=== PATIENT | male | born 1940 | race Caucasian/White ===

== ENCOUNTER 2019-01-26 17:28 | Emergency (ER) | payer BC, MEDICARE ==
[~2019-01-26] VITALS: Ht 182.8 cm; Wt 73.8 kg
--- NOTE | 2019-01-26 17:45 | NUR ---
This RN had a discussion with the patient . She states that Daniel is normally mild mannered but has become increasingly aggressive over the past 4 months. She reports that she sleeps in a seperate room and locks the door at night because he gets up and gets agitated. She also reports that he talks to himself all the time and makes comments like people are trying to kill him. She states that tonight he was more agitated, he was stomping and banging around the living room talking about the people who wanted to kill him.
--- NOTE | 2019-01-26 17:49 | ED General ---
General Stated Complaint: ALTERED MENTAL STATUS/FALL History of Present Illness Date Seen by Provider: Jan 26, 2019 Time Seen by Provider: 17:44 Initial Comments Patient presenting to emergency department for evaluation of hallucinations as says that he has been having hallucinations for the past 4 months which is not normal for him. He has been having some falls as well. Last the patient why he is here he doesn't know exactly how to answer and provides information that he has been hearing voices including voices from other family members that are not present they tell him to do things such as go places. He has been verbally aggressive at times as he is angry that someone is trying to kill him per the however she said she is concern for his safety as he has very bizarre behavior and she has been locking the door home. He denies any pain fever chills nausea vomiting diarrhea shortness of breath unilateral weakness numbness or tingling. His primary care provider started on a memory pill as he has dementia after Thanks[place] however this does not seem to be helping. He was on Eliquis but now he is just on aspirin. He is in no obvious distress with normal vital signs. (EDMUND VIDALES DO) Allergies and Home Medications Allergies Coded Allergies: No Known Drug Allergies (Unverified , 01/26/19) Home Medications Apixaban 5 Mg Tablet, 5 MG PO BID, (Reported) Aspirin 81 Mg Tablet.dr, 81 MG PO DAILY, (Reported) Atorvastatin Calcium 80 Mg Tablet, 80 MG PO DAILY, (Reported) Carvedilol 6.25 Mg Tablet, 6.25 MG PO BID, (Reported) Donepezil HCl 10 Mg Tablet, 10 MG PO HS, (Reported) Ginkgo Biloba 60 Mg Capsule, 60 MG PO DAILY, (Reported) Loratadine 10 Mg Tablet, 10 MG PO DAILY, (Reported) Memantine HCl 5 Mg Tablet, 5 MG PO BID, (Reported) Multivit-Min/FA/Lycopen/Lutein 1 Each Tablet, 1 EACH PO DAILY, (Reported) Nitroglycerin 0.4 Mg Tab.subl, 0.4 MG SL UD PRN for CHEST PAIN, (Reported) [place]-3 Fatty Acids/Fish Oil 1 Each Capsule, 1 EACH PO BID, (Reported) Omeprazole 20 Mg Capsule.dr, 20 MG PO DAILY, (Reported) Perindopril Erbumine 2 Mg Tablet, 2 MG PO DAILY, (Reported) Psyllium Husk 0.52 Gm Capsule, 0.52 GM PO HS, (Reported) Patient Home Medication List Home Medication List Reviewed: Yes (EDMUND VIDALES DO) Review of Systems Review of Systems Constitutional: no symptoms reported EENTM: no symptoms reported Respiratory: no symptoms reported Cardiovascular: no symptoms reported Gastrointestinal: no symptoms reported Genitourinary: no symptoms reported Musculoskeletal: no symptoms reported Skin: no symptoms reported Psychiatric/Neurological: No Symptoms Reported (EDMUND VIDALES DO) All Other Systems Reviewed Negative Unless Noted: Yes (EDMUND VIDALES DO) Past Osydxyn-Zaqrwi-Hsnaye Hx Patient Social History Recent Foreign Travel: No Contact w/Someone Who Travel: No (EDMUND VIDALES DO) Physical Exam Vital Signs Vital Signs - First Documented 01/26/19 17:33 Temp 36.7 Pulse 69 Resp 18 B/P (MAP) 158/80 (106) Pulse Ox 95 O2 Delivery Room Air (ARPIT LEON MD) Vital Signs Capillary Refill : (EDMUND VIDALES DO) Height, Weight, BMI Height: '" Weight: lbs. oz. kg; BMI Method: General Appearance: No Apparent Distress, WD/WN Eyes: Bilateral Eye Normal Inspection HEENT: PERRL/EOMI Neck: Supple Respiratory: No Respiratory Distress Cardiovascular: Regular Rate, Rhythm Gastrointestinal: Non Tender, Soft Back: Normal Inspection Extremity: No Pedal Edema Neurologic/Psychiatric: Alert, No Motor/Sensory Deficits Skin: Warm/Dry (EDMUND VIDALES DO) Progress/Results/Core Measures Suspected Sepsis SIRS Temperature: Pulse: Respiratory Rate: Blood Pressure / Mean: (EDMUND VIDALES DO) Results/Orders Lab Results Laboratory Tests Test 01/26/19 17:40 01/26/19 17:50 01/26/19 17:55 Range/Units Urine Color YELLOW Urine Clarity CLEAR Urine pH 7.0 5-9 Urine Specific [place] 1.015 L 1.016-1.022 Urine Protein NEGATIVE NEGATIVE Urine Glucose (UA) NEGATIVE NEGATIVE Urine Ketones NEGATIVE NEGATIVE Urine Nitrite NEGATIVE NEGATIVE Urine Bilirubin NEGATIVE NEGATIVE Urine Urobilinogen 1.0 < = 1.0 MG/DL Urine Leukocyte Esterase NEGATIVE NEGATIVE Urine RBC (Auto) NEGATIVE NEGATIVE Urine RBC 0-2 /HPF Urine WBC NONE /HPF Urine Squamous Epithelial Cells NONE /HPF Urine Crystals NONE /LPF Urine Bacteria TRACE /HPF Urine Casts NONE /LPF Urine Mucus SMALL H /LPF Urine Culture Indicated NO White Blood Count 6.1 4.3-11.0 10^3/uL Red Blood Count 4.20 L 4.35-5.85 10^6/uL Hemoglobin 13.7 13.3-17.7 G/DL Hematocrit 42 40-54 % Mean Corpuscular Volume 100 H 80-99 FL Mean Corpuscular Hemoglobin 33 25-34 PG Mean Corpuscular Hemoglobin Concent 33 32-36 G/DL Red Cell Distribution Width 13.2 10.0-14.5 % Platelet Count 168 130-400 10^3/uL Mean Platelet Volume 12.0 H 7.4-10.4 FL Neutrophils (%) (Auto) 50 42-75 % Lymphocytes (%) (Auto) 33 12-44 % Monocytes (%) (Auto) 15 H 0-12 % Eosinophils (%) (Auto) 1 0-10 % Basophils (%) (Auto) 1 0-10 % Neutrophils # (Auto) 3.1 1.8-7.8 X 10^3 Lymphocytes # (Auto) 2.0 1.0-4.0 X 10^3 Monocytes # (Auto) 0.9 0.0-1.0 X 10^3 Eosinophils # (Auto) 0.1 0.0-0.3 10^3/uL Basophils # (Auto) 0.1 0.0-0.1 10^3/uL Prothrombin Time 13.2 12.2-14.7 SEC INR Comment 1.0 0.8-1.4 Activated Partial Thromboplast Time 28 24-35 SEC Sodium Level 142 135-145 MMOL/L Potassium Level 4.4 3.6-5.0 MMOL/L Chloride Level 106 98-107 MMOL/L Carbon Dioxide Level 27 21-32 MMOL/L Anion Gap 9 5-14 MMOL/L Blood Urea Nitrogen 26 H 7-18 MG/DL Creatinine 1.50 H 0.60-1.30 MG/DL Estimat Glomerular Filtration Rate 45 BUN/Creatinine Ratio 17 Glucose Level 110 H 70-105 MG/DL Calcium Level 9.1 8.5-10.1 MG/DL Corrected Calcium 9.1 8.5-10.1 MG/DL Total Bilirubin 0.2 0.1-1.0 MG/DL Aspartate Amino Transf (AST/SGOT) 27 5-34 U/L Alanine Aminotransferase (ALT/SGPT) 21 0-55 U/L Alkaline Phosphatase 53 40-136 U/L Troponin I < 0.30 <0.30 NG/ML Pro-B-Type Natriuretic Peptide 354.5 H <75.0 PG/ML Total Protein 6.2 L 6.4-8.2 GM/DL Albumin 4.0 3.2-4.5 GM/DL Salicylates Level < 0.3 L 5.0-20.0 MG/DL Acetaminophen Level 11 10-30 UG/ML Serum Alcohol < 10 <10 MG/DL (ARPIT LEON MD) My Orders Orders - ARPIT LEON MD Thyroid Stimulating Hormone (01/26/19 17:50) (ARPIT LEON MD) Vital Signs/I&O 01/26/19 01/26/19 17:33 21:45 Temp 36.7 36.6 Pulse 69 52 Resp 18 14 B/P (MAP) 158/80 (106) 154/76 Pulse Ox 95 98 O2 Delivery Room Air Room Air (ARPIT LEON MD) Vital Signs/I&O Capillary Refill : (EDMUND VIDALES DO) Progress Note : Progress Note I think this may be a progression of his dementia rather than acute medical event. I will start by checking labs and head CT and then reassess the situation. Workup pending at time of shift change at 1800, transfer care to Dr. Leon. (EDMUND VIDALES DO) Departure Communication (Admissions) Patient is being admitted to [facility] for observation. He will see psychiatry in the morning. (ARPIT LEON MD) Impression Primary Impression: Dementia Additional Impressions: Hallucinations Altered mental status Disposition: XF SHT-TRM HOSP Condition: Stable Transfer Transfer Reason: Exceeds level of care Time Spoke to Accepting Phy: 19:47 Transfer Progress Notes I spoke with Dr. Gusman who agreed to admit [facility]. Transfer Time: 19:48 Transfer Facility: [facility] [address] Method of Transfer: EMS (ARPIT LEON MD) Departure-Patient Inst. Referrals: KEVIN DELGADO MD (PCP/Family) Primary Care Physician EDMUND VIDALES DO Jan 26, 2019 17:49 POSTAYLORARPIT MD Jan 26, 2019 19:48 POS
[2019-01-26 17:54] LABS: BACTERIA,URINE TRACE /HPF; BILIRUBIN,URINE NEGATIVE (NEGATIVE); CLARITY,URINE CLEAR; COLOR,URINE YELLOW; GLUCOSE, URINE (UA) NEGATIVE (NEGATIVE); KETONES,URINE NEGATIVE (NEGATIVE); LEUKOCYTE ESTERASE ,URINE NEGATIVE (NEGATIVE); NITRITE,URINE NEGATIVE (NEGATIVE); PROTEIN,URINE NEGATIVE (NEGATIVE); RBC,URINE 0-2 /HPF
[2019-01-26 18:07] LABS: BASOPHILS # (AUTO) 0.1 10^3/uL (0.0-0.1); BASOPHILS % (AUTO) 1 % (0-10); EOSINOPHILS # (AUTO) 0.1 10^3/uL (0.0-0.3); EOSINOPHILS % (AUTO) 1 % (0-10); HEMATOCRIT 42 % (40-54); HEMOGLOBIN 13.7 G/DL (13.3-17.7); LYMPHOCYTES % (AUTO) 33 % (12-44); MEAN CORPUSCULAR HEMOGLOBIN 33 PG (25-34); MEAN CORPUSCULAR HGB CONC 33 G/DL (32-36); MEAN CORPUSCULAR VOLUME 100 FL (80-99); MONOCYTES # (AUTO) 0.9 X 10^3 (0.0-1.0); MONOCYTES % (AUTO) 15 % (0-12); NEUTROPHILS # (AUTO) 3.1 X 10^3 (1.8-7.8); NEUTROPHILS % (AUTO) 50 % (42-75); PLATELET COUNT 168 10^3/uL (130-400); RED CELL DISTRIBUTION WIDTH 13.2 % (10.0-14.5); WHITE BLOOD COUNT 6.1 10^3/uL (4.3-11.0)
--- NOTE | 2019-01-26 18:18 | Diagnostic Imaging Report ---
PROCEDURE: CT head without contrast. TECHNIQUE: Multiple contiguous axial images were obtained through the brain without the use of intravenous contrast. Auto Exposure Controls were utilized during the CT exam to meet ALARA standards for radiation dose reduction. INDICATION: Recent fall with altered mental status, history of dementia. COMPARISON STUDIES: None. FINDINGS: Noncontrast CT scanning of the head demonstrates calcification adjacent to the posterior aspect of the lateral ventricle. This is probably chronic, although a tumor with calcification cannot be completely excluded. MRI of the brain with and without contrast would be helpful for further evaluation. There is also some calcification along the cortex in the region of the sylvian fissure. This is also most likely chronic. Diffuse atrophy and white matter changes are present. No acute or focal areas of encephalomalacia are present. Calcifications are seen within the carotid siphons and vertebral arteries. There is no mass effect, midline shift, hemorrhage, or extra-axial fluid collections. IMPRESSION: 1. There are no acute intracranial findings. 2. There are some calcifications in the brain, which are probably chronic. Recommend MRI of the head with and without contrast for further evaluation of these. 3. Atrophy, microvascular disease, and arterial sclerosis are present. Dictated by: Dictated on workstation # [id number]
[2019-01-26 18:23] LABS: PROTHROMBIN TIME PATIENT 13.2 SEC (12.2-14.7)
[2019-01-26] MEDS ORDERED: CARV6.252 PO (18:25)
[2019-01-26] MEDS ORDERED: APIX5TAB PO (18:25)
[2019-01-26] MEDS ORDERED: MULT-1061 PO (18:25)
[2019-01-26] MEDS ORDERED: NITR0.4T39 SL (18:25)
[2019-01-26] MEDS ORDERED: OMEG1CAP58 PO (18:25)
[2019-01-26] MEDS ORDERED: GINK60CA2 PO (18:25)
[2019-01-26] MEDS ORDERED: DONE10TA41 PO (18:25)
[2019-01-26] MEDS ORDERED: ATOR80TA76 PO (18:25)
[2019-01-26] MEDS ORDERED: MEMA5TAB16 PO (18:25)
[2019-01-26] MEDS ORDERED: PERI2TAB2 PO (18:25)
[2019-01-26] MEDS ORDERED: PSYL0.5244 PO (18:25)
[2019-01-26] MEDS ORDERED: LORA10TA76 PO (18:25)
[2019-01-26] MEDS ORDERED: ASPI-983 PO (18:25)
[2019-01-26] MEDS ORDERED: OMEP20CA13 PO (18:25)
[2019-01-26 18:32] LABS: CARBON DIOXIDE 27 MMOL/L (21-32); CHLORIDE 106 MMOL/L (98-107); POTASSIUM 4.4 MMOL/L (3.6-5.0); SODIUM 142 MMOL/L (135-145)
[2019-01-26 18:33] LABS: ACETAMINOPHEN 11 UG/ML (10-30); ALKALINE PHOSPHATASE 53 U/L (40-136); BILIRUBIN,TOTAL 0.2 MG/DL (0.1-1.0); BUN/CREATININE RATIO 17; CALCIUM 9.1 MG/DL (8.5-10.1); GFR ESTIMATED 45; GLUCOSE 110 MG/DL (70-105); SALICYLATE < 0.3 MG/DL (5.0-20.0); TOTAL PROTEIN 6.2 GM/DL (6.4-8.2)
[2019-01-26 18:56] LABS: ALANINE AMINOTRANSFERASE 21 U/L (0-55)
--- NOTE | 2019-01-26 19:04 | NUR ---
Spoke to Lulu at [facility] source was advised to call the geriatric psych unit at [facility]. She stated that even if they screened the patient that [place] would have to rescreen the patient for placement.
--- NOTE | 2019-01-26 19:11 | NUR ---
Spoke to Miguelangel at [facility]. He stated that he will relay the information and a screener will be in contact shortly.
--- NOTE | 2019-01-26 19:42 | NUR ---
Screener Sheela from [facility] talking with about taking pt home and screening in am vs having Dr Gusman admit pt overnite for screening tomorrow. Dr Gusman will call and talk with Dr Hunt regarding this decision. Dr Hunt spoke with earlier and is ok with taking pt home tonight.
--- NOTE | 2019-01-26 20:00 | NUR ---
ems notified of need for transfer. [place] upon their return
[2019-01-26 21:45] VITALS: BP 154/76
== END 2019-01-26 21:45 | disposition short-term general hospital (02) ==
LOC: EDUNIT# 17:28 → ER FS 17:32
DX: F03.90 Unspecified dementia, unspecified severity, without behavioral disturbance, psychotic disturbance, mood disturbance, and anxiety (principal); R44.3 Hallucinations, unspecified; R41.82 Altered mental status, unspecified; Z79.82 Long term (current) use of aspirin; Z79.01 Long term (current) use of anticoagulants
CPT/HCPCS: 36415; 70450; 80053; 80320; 80329; 81000; 83880; 84443; 84484; 85025; 85610; 85730; 93005

== ENCOUNTER 2020-09-30 14:52 | Observation (INO) | payer MEDICARE, BC ==
[~2020-09-30] VITALS: Ht 177 cm; Wt 88.1 kg
[~2020-09-30 14:52] MED LIST: APIX5TAB PO; ASPI-1238 PO; ATOR80TA76 PO; CARV6.252 PO; DONE10TA41 PO; GINK60CA2 PO; LORA10TA76 PO; MEMA5TAB43 PO; MULT-1061 PO; NITR0.4T39 SL; OMEG1CAP58 PO; OMEP20CA18 PO; PERI2TAB2 PO; PSYL0.5244 PO
--- OUTSIDE RECORDS SUMMARY | 2020-09-30 14:57 | XMS REPORT | Encounter Summary ---
Author Author [facility] Organization [facility] Address Unknown Phone Unavailable Care Team Providers Care Paramedic Supervisor Name Role Phone Anjel Suarez MD PCP Encounter Details Care Team Description Date Type Department Norman Arce MD [address] [facility] [address] [place] [address] [phone] 08/08/2020 Documentation [facility] [address] [place] [address] Social History Date Tobacco Use Types Packs/Day Years Used Never Smoker Smokeless Tobacco: Never Used Comments Alcohol Use Standard Drinks/Week No 0 (1 standard drink = 0.6 o z pure alcohol) Sex Assigned at Date Recorded Not on file documented as of this encounter Plan of Treatment Not on filedocumented as of this encounter Procedures Comments Procedure Name Priority Date/Time Associated Diag nosis LAB OUTSIDE RECORD Routine 08/08/2020 12:48 PM CDT PULMONARY FUNCTION TEST Routine 06/25/2020 LAB OUTSIDE RECORD Routine 02/27/2020 documented in this encounter Results * Lab Outside Record (08/08/2020 12:48 PM CDT) Specimen Blood Narrative Performed At This result has an attachment that is n ot available. * Lab Outside Record (02/27/2020) Specimen Blood Narrative Performed At This result has an attachment that is n ot available. documented in this encounter Visit Diagnoses Not on filedocumented in this encounter
--- OUTSIDE RECORDS SUMMARY | 2020-09-30 14:57 | XMS REPORT | Clinical Summary ---
Author Author [facility] Organization [facility] Address Unknown Phone Unavailable Care Team Providers Care Cook Specialty Name Role Phone Anjel Suarez MD PCP Allergies No Known Active Allergies Medications End Date Status Medication Sig Dispensed Refills Start Date Active stknburr-tga-PU-lycopen-l take 1 tablet 1 0 utein (CENTRUM SILVER) by oral route 4 0.4-300-250 mg-mcg-mcg every day Tab Active nitroglycerin (NITROSTAT) place 1 30 5 0.4 MG SL tablet tablet 3 (0.4MG) by sublingual route as needed for chest pain X3 doses 5 minutes apart. Active flunisolide (NASALIDE) 25 spray 2 spray 1 0 mcg (0.025 %) [place] by intranasal 3 route 2 times every day in each nostril Active omega 2-fpg-bvq-fish oil 2 capsules 60 0 1 1,000 mg (120 mg-180 mg) daily 3 cap Active loratadine (CLARITIN) 10 take 1 tablet 30 0 mg tablet (10MG) by 3 oral route every day Active aspirin 81 MG EC tablet take 1 tablet 30 0 (81MG) by 3 oral route every day Active apixaban (ELIQUIS) 5 mg Take 1 tablet 60 tablet 11 tabletIndications: (5 mg total) 8 prevent thromboembolism by mouth 2 in chronic atrial (two) times a fibrillation day. Active perindopril (ACEON) 2 MG Take 2 mg by 0 tablet mouth daily. Active omeprazole (PRILOSEC) 20 Take 20 mg by 0 MG capsule mouth daily. Active venlafaxine (EFFEXOR-XR) Take 150 mg 0 150 mg ER 24 hr capsule by mouth daily. Active OLANZapine (ZYPREXA) 7.5 Take 7.5 mg 0 MG tablet by mouth nightly. Active atorvastatin (LIPITOR) 80 Take 0.5 0 06/0 202 MG tablet tablets (40 0 mg total) by mouth nightly. Active carvediloL (COREG) 6.25 TAKE 1 TABLET 180 tablet 3 MG tablet BY MOUTH 0 TWICE DAILY WITH MEALS DOSE DECREASE Active Problems Problem Noted Date Apical variant hypertrophic cardiomyopathy 0 Memory loss 07/23/2018 Chest pain 10/21/2017 History of non-ST elevation myocardial infarction (NS MUSTAPHA) 10/21/[address] elevation myocardial infarction (STEMI) 10/27/2012 Type 2 diabetes mellitus CKD (chronic kidney disease) Essential hypertension Coronary artery disease involving nativ e coronary artery of [place] heart Atrial fibrillation Overview: Formatting of this note might be differ ent from the original. 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 Mixed hyperlipidemia S/P coronary artery stent placement Amyloidosis Encounters Care Team Description Date Type Specialty Norman Arce MD 08/08/2020 Documentation Cardiology Norman Arce MD 07/21/2020 Documentation Cardiology Norman Arce MD 07/04/2020 Documentation Cardiology from Last 3 Months Family History Medical History Relation Name Comments Cancer Brother Cancer Brother Coronary artery disease Father Heart disease Father Hyperlipidemia Father Hypertension Father Lupus Mother Alzheimer's disease Sister Relation Name Status Comments Brother (Age 26) Brother Infections (Age 75) Father Cause of was [place] at age 60. (Age 60) Mother Cause of was Lupus at age 82. (Age 82) Sister Social History Date Tobacco Use Types Packs/Day Years Used Never Smoker Smokeless Tobacco: Never Used Comments Alcohol Use Standard Drinks/Week No 0 (1 standard drink = 0.6 o z pure alcohol) Sex Assigned at Date Recorded Not on file Last Filed Vital Signs Reading Time Taken Comments Vital Sign 156/95 07/28/2018 10:41 AM CDT Blood Pressure 46 07/28/2018 10:41 AM CDT Pulse 36.6 C (97.8 F) 10/23/2017 7:47 AM CDT Temperature 16 10/23/2017 7:47 AM CDT Respiratory Rate 97% 10/23/2017 7:47 AM CDT Oxygen Saturation - - Inhaled Oxygen Concentration 73.4 kg (161 lb 12.8 oz) 07/28/2018 10:41 AM CDT Weight 177.8 cm (5' 10") 07/28/2018 10:41 AM CDT Height 23.22 07/28/2018 10:41 AM CDT Body Mass Index Plan of Treatment Health Maintenance Due Date Last Done Comments Advance Directive has 1940 been filed Diabetes Mellitus 1940 Ophthalmology Exam Medicare Annual Wellness 1940 Td/Tdap# 1940 Diabetes Mellitus Foot 10/11/1951 Exam COVID-19 Vaccine (1) 1953 Zoster Vaccine# (1 of 2) 10/11/1991 Advance Directive 2006 Conversation Depression Screening 2006 PHQ-9 # Patient Needs Advance 2006 Directive Diabetes Mellitus 04/20/2018 10/21/2017, Hemoglobin A1C 10/28/2012 Fall Risk Assessment # 10/23/2018 10/23/2017 Lipid Screening 03/05/2019 03/05/2018, 10/22/2017, 10/22/2017, Additional history exists Influenza Vaccine (#1) 2020 06/16/2019, 12/07/2017, 12/07/2017, Additional history exists Pneumococcal Vaccine: 65+ Completed 11/03/2016, Years 11/02/2008 Procedures Comments Procedure Name Priority Date/Time Associated Diag nosis LAB OUTSIDE RECORD Routine 08/08/2020 12:48 PM CDT from Last 3 Months Results * Lab Outside Record (08/08/2020 12:48 PM CDT) Specimen Blood Narrative Performed At This result has an attachment that is n ot available. from Last 3 Months Insurance Type Payer Benefit Subscriber ID Effective Phone Address Plan / Dates Group Medicare MEDICARE MEDICARE [id number] 2006-P [place] PART A B [facility] [id number] FEDERAL Present [id number] (Home) [place], [place] [address] Daniel Ramos Personal/F Self [id number] [place]Home) [place], [place] [address] Daniel Ramos Personal/F Self 1940 [id number] (Home) [place] [id number] 1 Advance Directives For more information, please contact: [phone] Patient Supervisor Paper Testing Explanation Type Date Recorded Advance Directives and Living Will Power of Residential [facility] Care Directive Date Inactivated Comments Code Status Date Activated 10/23/2017 2:43 PM Full Code 10/22/2017 4:27 PM 10/22/2017 4:27 PM Full Code 10/21/2017 2:40 PM
[2020-09-30 15:13] LABS: BASOPHILS % (AUTO) 1 % (0-10); EOSINOPHILS # (AUTO) 0.1 10^3/uL (0.0-0.3); EOSINOPHILS % (AUTO) 1 % (0-10); HEMATOCRIT 38 % (40-54); HEMOGLOBIN 12.4 G/DL (13.3-17.7); LYMPHOCYTES # (AUTO) 1.2 X 10^3 (1.0-4.0); LYMPHOCYTES % (AUTO) 16 % (12-44); MEAN CORPUSCULAR HEMOGLOBIN 31 PG (25-34); MEAN CORPUSCULAR HGB CONC 33 G/DL (32-36); MEAN CORPUSCULAR VOLUME 97 FL (80-99); MEAN PLATELET VOLUME 11.2 FL (7.4-10.4); MONOCYTES # (AUTO) 1.4 X 10^3 (0.0-1.0); MONOCYTES % (AUTO) 17 % (0-12); NEUTROPHILS # (AUTO) 5.2 X 10^3 (1.8-7.8); NEUTROPHILS % (AUTO) 66 % (42-75); PLATELET COUNT 218 10^3/uL (130-400)
[2020-09-30] MEDS ORDERED: NS IV 1000 ML 1,000 ML IV SCH (15:15)
[2020-09-30] MEDS ORDERED: ONDANSETRON 4 MG/2 ML (SDV) Z0FRAN IVP ONE (15:15)
[2020-09-30] MEDS ORDERED: fentaNYL INJ 100 MCG/2 ML AMP IVP ONE (15:30)
--- NOTE | 2020-09-30 15:33 | ED General ---
General Chief Complaint: General Problems/Pain Stated Complaint: GENERAL WEAKNESS Nursing Triage Note: PT WAS WOBBLY ON HIS FEET THIS AM AND THS AFTER IT HAS WORSENED AND HE IS UNABLE TO STAND. Source of Information: Patient, Family Exam Limitations: No Limitations History of Present Illness Date Seen by Provider: Sep 30, 2020 Time Seen by Provider: 14:30 Initial Comments Patient is a 79-year-old male memory unit group home patient is nonverbal with history of dementia who presents with generalized weakness and deep nonproductive cough. Patient was able to dress himself this morning but by 10:30 AM was generally weak and needed to be helped by staff members back to his bed. Patient is normally alert and ambulatory and walks without assistance. History is limited by his cognitive and verbal impairment. Additional history of by patient's spouse. Timing/Duration: 1-3 Hours Severity: Moderate Modifying Factors: improves with Other Allergies and Home Medications Allergies Coded Allergies: No Known Drug Allergies (Unverified , 01/26/19) Home Medications Apixaban 5 Mg Tablet, 5 MG PO BID, (Reported) Aspirin 81 Mg Tablet.dr, 81 MG PO DAILY, (Reported) Atorvastatin Calcium 80 Mg Tablet, 80 MG PO DAILY, (Reported) Carvedilol 6.25 Mg Tablet, 6.25 MG PO BID, (Reported) Donepezil HCl 10 Mg Tablet, 10 MG PO HS, (Reported) Ginkgo Biloba 60 Mg Capsule, 60 MG PO DAILY, (Reported) Loratadine 10 Mg Tablet, 10 MG PO DAILY, (Reported) Memantine HCl 5 Mg Tablet, 5 MG PO BID, (Reported) Multivit-Min/FA/Lycopen/Lutein 1 Each Tablet, 1 EACH PO DAILY, (Reported) Nitroglycerin 0.4 Mg Tab.subl, 0.4 MG SL UD PRN for CHEST PAIN, (Reported) [place]-3 Fatty Acids/Fish Oil 1 Each Capsule, 1 EACH PO BID, (Reported) Omeprazole 20 Mg Capsule.dr, 20 MG PO DAILY, (Reported) Perindopril Erbumine 2 Mg Tablet, 2 MG PO DAILY, (Reported) Psyllium Husk 0.52 Gm Capsule, 0.52 GM PO HS, (Reported) Patient Home Medication List Home Medication List Reviewed: Yes Review of Systems Review of Systems Constitutional: see HPI EENTM: see HPI Respiratory: see HPI Cardiovascular: see HPI Gastrointestinal: see HPI Genitourinary: see HPI Musculoskeletal: see HPI Skin: see HPI Psychiatric/Neurological: See HPI Hematologic/Lymphatic: See HPI Immunological/Allergic: see HPI All Other Systems Reviewed Negative Unless Noted: Yes Past Vlzcdxg-Weygek-Romjip Hx Patient Social History Tobacco Use?: No Use of E-Cig and/or Vaping dev: No Substance use?: No Alcohol Use?: No Pt feels they are or have been: No Immunizations Up To Date First/Initial COVID19 Vaccinat: MAR 2020 Second COVID19 Vaccination Osiel: APRIL 2020 COVID19 Vaccine Registered Associate: MODER[facility] Seasonal Allergies Seasonal Allergies: Yes Past Medical History Surgeries: Yes (Hernia Repair, Sinus Surgery) Cardiac, Coronary Stent Respiratory: No Cardiac: Yes Coronary Artery Disease, Heart Attack, High Cholesterol, Hypertension Neurological: Yes Dementia Genitourinary: No Gastrointestinal: No Musculoskeletal: No Endocrine: No HEENT: No Cancer: No Psychosocial: No Blood Disorders: No Physical Exam Vital Signs Vital Signs - First Documented 09/30/20 15:00 Temp 36.5 Pulse 102 Resp 20 B/P (MAP) 114/64 (81) Pulse Ox 95 O2 Delivery Room Air Capillary Refill : Less Than 3 Seconds Height, Weight, BMI Height: '" Weight: lbs. oz. kg; 30.00 BMI Method: General Appearance: No Apparent Distress Eyes: Bilateral Eye Normal Inspection, Bilateral Eye PERRL, Bilateral Eye EOMI HEENT: PERRL/EOMI, Normal ENT Inspection, Pharynx Normal Neck: Full Range of Motion, Non Tender, Supple Respiratory: Chest Non Tender, Lungs Clear Cardiovascular: Regular Rate, Rhythm Gastrointestinal: Non Tender, Soft Back: Normal Inspection, No CVA Tenderness Neurologic/Psychiatric: Alert, Oriented x3 Skin: Normal Color Focused Exam Sepsis Stage: Ruled Out Progress/Results/Core Measures Suspected Sepsis SIRS Temperature: Pulse: 102 Respiratory Rate: 20 Laboratory Tests 09/30/20 15:06: White Blood Count 8.0 Blood Pressure 114 /64 Mean: 81 Laboratory Tests 09/30/20 15:06: Creatinine 2.03H, Platelet Count 218, Total Bilirubin 0.2 Results/Orders Lab Results Laboratory Tests Test 09/30/20 15:06 09/30/20 15:20 09/30/20 15:53 Range/Units White Blood Count 8.0 4.3-11.0 10^3/uL Red Blood Count 3.94 L 4.35-5.85 10^6/uL Hemoglobin 12.4 L 13.3-17.7 G/DL Hematocrit 38 L 40-54 % Mean Corpuscular Volume 97 80-99 FL Mean Corpuscular Hemoglobin 31 25-34 PG Mean Corpuscular Hemoglobin Concent 33 32-36 G/DL Red Cell Distribution Width 13.9 10.0-14.5 % Platelet Count 218 130-400 10^3/uL Mean Platelet Volume 11.2 H 7.4-10.4 FL Immature Granulocyte % (Auto) 0 % Neutrophils (%) (Auto) 66 42-75 % Lymphocytes (%) (Auto) 16 12-44 % Monocytes (%) (Auto) 17 H 0-12 % Eosinophils (%) (Auto) 1 0-10 % Basophils (%) (Auto) 1 0-10 % Neutrophils # (Auto) 5.2 1.8-7.8 X 10^3 Lymphocytes # (Auto) 1.2 1.0-4.0 X 10^3 Monocytes # (Auto) 1.4 H 0.0-1.0 X 10^3 Eosinophils # (Auto) 0.1 0.0-0.3 10^3/uL Basophils # (Auto) 0.0 0.0-0.1 10^3/uL Immature Granulocyte # (Auto) 0.0 0.0-0.1 10^3/uL Sodium Level 138 135-145 MMOL/L Potassium Level 4.5 3.6-5.0 MMOL/L Chloride Level 104 98-107 MMOL/L Carbon Dioxide Level 23 21-32 MMOL/L Anion Gap 11 5-14 MMOL/L Blood Urea Nitrogen 32 H 7-18 MG/DL Creatinine 2.03 H 0.60-1.30 MG/DL Estimat Glomerular Filtration Rate 32 BUN/Creatinine Ratio 16 Glucose Level 139 H 70-105 MG/DL Calcium Level 8.5 8.5-10.1 MG/DL Corrected Calcium 8.9 8.5-10.1 MG/DL Total Bilirubin 0.2 0.1-1.0 MG/DL Aspartate Amino Transf (AST/SGOT) 31 5-34 U/L Alanine Aminotransferase (ALT/SGPT) 19 0-55 U/L Alkaline Phosphatase 86 40-136 U/L Troponin I < 0.30 <0.30 NG/ML Total Protein 5.9 L 6.4-8.2 GM/DL Albumin 3.5 3.2-4.5 GM/DL Lipase 28 8-78 U/L Urine Color YELLOW Urine Clarity CLEAR Urine pH 7.5 5-9 Urine Specific [place] 1.020 1.016-1.022 Urine Protein NEGATIVE NEGATIVE Urine Glucose (UA) NEGATIVE NEGATIVE Urine Ketones NEGATIVE NEGATIVE Urine Nitrite NEGATIVE NEGATIVE Urine Bilirubin NEGATIVE NEGATIVE Urine Urobilinogen 0.2 < = 1.0 MG/DL Urine Leukocyte Esterase NEGATIVE NEGATIVE Urine RBC (Auto) 2+ H NEGATIVE Urine RBC >100 H /HPF Urine WBC NONE /HPF Urine Crystals NONE /LPF Urine Bacteria FEW H /HPF Urine Casts PRESENT /LPF Urine Hyaline Casts 2-5 H /LPF Urine Mucus MODERATE H /LPF Urine Culture Indicated NO My Orders Tereza - GEORGE DIALLO DO Cbc With Automated Diff (09/30/20 15:06) Comprehensive Metabolic Panel (09/30/20 15:06) Lipase (09/30/20 15:06) Ua Culture If Indicated (09/30/20 15:06) Troponin I Fs (09/30/20 15:06) Ondansetron Injection (Zofran Injectio (09/30/20 15:15) Ns Iv 1000 Ml (Sodium Chloride 0.9%) (09/30/20 15:15) Ekg Tracing (09/30/20 15:08) Chest 1 View Ap/Pa Only (09/30/20 15:34) Troponin I Fs (09/30/20 15:51) Covid 19 Inhouse Test (09/30/20 15:51) Influenza A And B By Pcr (09/30/20 15:51) Medications Given in ED Current Medications Medications Dose Ordered Sig/Manuel Route Start Time Stop Time Status Last Admin Dose Admin Ondansetron HCl 4 mg ONCE ONCE IVP 09/30/20 15:15 09/30/20 15:29 DC 09/30/20 15:12 4 MG Vital Signs/I&O 09/30/20 15:00 Temp 36.5 Pulse 102 Resp 20 B/P (MAP) 114/64 (81) Pulse Ox 95 O2 Delivery Room Air Capillary Refill : Less Than 3 Seconds Blood Pressure Mean: 81 Departure Communication (Admissions) Chest x-ray: No acute cardiopulmonary disease per radiology report Generalized weakness with nonproductive cough without respiratory compromise nonverbal dementia patient. Patient is unable to stand without sick systems. Concerned about returning to memory care unit with unknown diagnosis with wors ening condition and concern for potential injury. Dr. Gusman accepts to [facility] Impression Primary Impression: Generalized weakness Additional Impression: Dementia Disposition: ADMITTED INPATIENT Condition: Stable Admissions Decision to Admit Reason: Admit from ER (General) Decision to Admit/Date: Sep 30, 2020 Time/Decision to Admit Time: 16:30 Departure-Patient Inst. Referrals: KEVIN DELGADO MD (PCP/Family) Primary Care Physician Patient Instructions: Generalized Weakness (DC) GEORGE DIALLO DO Sep 30, 2020 15:33
[2020-09-30 15:35] LABS: ALANINE AMINOTRANSFERASE 19 U/L (0-55); ALBUMIN 3.5 GM/DL (3.2-4.5); ALKALINE PHOSPHATASE 86 U/L (40-136); BILIRUBIN,TOTAL 0.2 MG/DL (0.1-1.0); BUN/CREATININE RATIO 16; CALCIUM 8.5 MG/DL (8.5-10.1); CARBON DIOXIDE 23 MMOL/L (21-32); CHLORIDE 104 MMOL/L (98-107); CREATININE SERUM 2.03 MG/DL (0.60-1.30); GFR ESTIMATED 32; GLUCOSE 139 MG/DL (70-105); LIPASE 28 U/L (8-78); POTASSIUM 4.5 MMOL/L (3.6-5.0); SODIUM 138 MMOL/L (135-145); TOTAL PROTEIN 5.9 GM/DL (6.4-8.2)
--- NOTE | 2020-09-30 15:46 | Diagnostic Imaging Report ---
CHEST 1 VIEW AP/PA ONLY Indication: Cough Comparison: 06/01/2006 Findings: No focal airspace disease in the visualized lungs. Please note that the posterior lower lobes are poorly evaluated by portable radiography. No pleural effusion or pneumothorax. Normal cardiomediastinal silhouette. Impression: 1. No acute cardiopulmonary process by portable radiography. Dictated by: Dictated on workstation # [id number]
[2020-09-30 15:54] LABS: BACTERIA,URINE FEW /HPF; BILIRUBIN,URINE NEGATIVE (NEGATIVE); CLARITY,URINE CLEAR; COLOR,URINE YELLOW; GLUCOSE, URINE (UA) NEGATIVE (NEGATIVE); KETONES,URINE NEGATIVE (NEGATIVE); LEUKOCYTE ESTERASE ,URINE NEGATIVE (NEGATIVE); NITRITE,URINE NEGATIVE (NEGATIVE); PH,URINE 7.5 (5-9); PROTEIN,URINE NEGATIVE (NEGATIVE); RBC,URINE >100 /HPF
[2020-09-30 18:35] VITALS: BP 138/96
[2020-09-30] MEDS ORDERED: OLAN15TA35 (19:48)
[2020-09-30] MEDS ORDERED: VENL150C98 PO (19:48)
[2020-09-30 20:00] VITALS: BP 155/84
[2020-09-30] MEDS ORDERED: DOCUSATE SODIUM 100 MG (COLACE) CAP PO PRN (20:45)
[2020-09-30] MEDS ORDERED: ACETAMINOPHEN 500 MG TAB (TYLENOL) PO PRN (20:45)
[2020-09-30] MEDS ORDERED: diphenhydrAMINE 25 MG TAB (BENADRYL) PO PRN (20:45)
[2020-09-30] MEDS ORDERED: CALCIUM CARBONATE 500 MG (TUMS) TAB.CHEW PO PRN (20:45)
[2020-09-30] MEDS ORDERED: ONDANSETRON 4 MG/2 ML (SDV) Z0FRAN IVP PRN (20:45)
[2020-09-30] MEDS ORDERED: LOPERAMIDE 2 MG (IMODIUM) TABLET PO PRN (20:45)
[2020-09-30] MEDS: SENNA W/DOCUSATE (SENOKOT S) TABLET PO SCH (21:12)
[2020-09-30] MEDS: APIXABAN 5 MG (ELIQUIS) TABLET PO SCH (21:13)
[2020-09-30] MEDS: D5 1/2 NS 1000 ML IV SOLUTION 1,000 ML IV SCH (21:13)
[2020-09-30] MEDS: MELATONIN 3 MG TABLET PO PRN (22:27)
[2020-09-30] MEDS: ALPRAZolam 0.25 MG (XANAX) TAB PO PRN (22:27)
[2020-09-30 23:34] VITALS: BP 122/74
[2020-10-01 03:51] VITALS: BP 167/96
[2020-10-01] MEDS: D5 1/2 NS 1000 ML IV SOLUTION 1,000 ML IV SCH ×4 (05:16→23:05)
[2020-10-01 06:25] LABS: BASOPHILS % (AUTO) 0 % (0-10); EOSINOPHILS # (AUTO) 0.1 10^3/uL (0.0-0.3); EOSINOPHILS % (AUTO) 1 % (0-10); HEMATOCRIT 39 % (40-54); LYMPHOCYTES # (AUTO) 1.3 10^3/uL (1.0-4.0); LYMPHOCYTES % (AUTO) 18 % (12-44); MEAN CORPUSCULAR HEMOGLOBIN 31 pg (25-34); MEAN CORPUSCULAR HGB CONC 31 g/dL (32-36); MEAN CORPUSCULAR VOLUME 100 fL (80-99); MEAN PLATELET VOLUME 11.5 fL (9.0-12.2); MONOCYTES # (AUTO) 1.2 10^3/uL (0.0-1.0); MONOCYTES % (AUTO) 17 % (0-12); NEUTROPHILS # (AUTO) 4.5 10^3/uL (1.8-7.8); NEUTROPHILS % (AUTO) 63 % (42-75); PLATELET COUNT 185 10^3/uL (130-400); WHITE BLOOD COUNT 7.2 10^3/uL (4.3-11.0)
[2020-10-01] MEDS: VENlafaxine XR 75 MG (EFFEXOR XR) CAP PO SCH (06:30)
[2020-10-01 06:43] LABS: CALCIUM 8.2 MG/DL (8.5-10.1); CREATININE SERUM 1.5 MG/DL (0.60-1.30)
[2020-10-01 07:38] VITALS: BP 156/96
[2020-10-01] MEDS: SENNA W/DOCUSATE (SENOKOT S) TABLET PO SCH ×2 (08:46→20:18)
[2020-10-01] MEDS: PANTOPRAZOLE 20 MG TABLET (PROTONIX) PO SCH (08:46)
[2020-10-01] MEDS: LORATADINE (CLARITIN) 10 MG TAB PO SCH (08:46)
[2020-10-01] MEDS: APIXABAN 5 MG (ELIQUIS) TABLET PO SCH ×2 (08:46→20:18)
[2020-10-01] MEDS: lisINopril 10 MG (PRINIVIL) TABLET PO SCH (08:46)
[2020-10-01] MEDS: ASPIRIN E.C. 81 MG (ECOTRIN) TAB PO SCH (08:47)
[2020-10-01] MEDS ORDERED: OLANZapine 5 MG (ZyPREXA) TAB PO SCH (09:00)
[2020-10-01] MEDS ORDERED: ACET-2267 PO (09:08)
[2020-10-01 11:48] VITALS: BP 135/77
--- NOTE | 2020-10-01 12:17 | Physical Therapy Evaluation ---
PT Evaluation-General Medical Diagnosis Admission Date Sep 30, 2020 at 15:29 Medical Diagnosis: Covid Onset Date: Sep 30, 2020 Therapy Diagnosis Therapy Diagnosis: generalized weakness/debility Precautions Precautions/Isolations: Contact Isolation, Droplet Isolation Referral Physician: Dao Reason for Referral: Evaluation/Treatment Medical History Pertinent Medical History: CAD, Dementia (advanced/nonverbal), HTN, MA Current History ER from memory care facility secondary to weakness with inability to ambulate Reviewed History: Yes Social History Home: Detention Prior Prior Level of Function SCALE: Activities may be completed with or without assistive devices. 1-Yzjcpniarr-qblpsgk completes the activity by him/herself with no assistance from a helper. 5-Set-up or Clean-up Assistance-helper sets up or cleans up; patient completes activity. [place] assists only prior to or following the activity. 4-Supervision or Touching Assistance-helper provides verbal cues and/or touching/steadying and/or contact guard assistance as patient completes activity. Assistance may be provided throughout the activity or intermittently. 3-Partial/Moderate Assistance-helper does LESS THAN HALF the effort. [place] lifts, holds or supports trunk or limbs, but provides less than half the effort. 2-Substantial/Maximal Assistance-helper does MORE THAN HALF the effort. [place] lifts or holds trunk or limbs and provides more than half the effort. 8-Umkbsully-yqprpk does ALL the effort. Patient does none of the effort to complete the activity. Or, the assistance of 2 or more helpers is required for the patient to complete the activity. If activity was not attempted, code reason: 7-Patient Refused. 9-Not Applicable-not attempted and the patient did not perform the activity before the current illness, exacerbation or injury. 10-Not Attempted due to Environmental Limitations-(lack of equipment, weather restraints, etc.). 88-Not Attempted due to Medical Conditions or Safety Concerns. Bed Mobility: 6 Transfers (B,C,W/C): 6 Gait: 6 Stairs: 9 Wheelchair Mobility: 9 Indoor Mobility (Ambulation): Independent Stairs: Not [place] Prior Devices Use: None PT Evaluation-Current Subjective Patient is non verbal and unable to follow simple direction. Objective Patient Orientation: Confused, Non-Verbal/Aphasic ROM/Strength ROM Lower Extremities bilateral LE WFL Strength Lower Extremities 3/5 grossly bilateral LE (no formal testing due to patient's inability to follow simple direction) Integumentary/Posture Bladder Incontinence: Gardner Cath Posture WFL Neuromuscular (Tone, Coordination, Reflexes) diminished coordination due to dementia and weakness Sensory Vision: Unable to Assess Hearing: Unable to Assess Transfers Roll Left to Right (QC): 1 Sit to Lying (QC): 1 Lying to Sitting/Side of Bed(Q: 1 Sit to Stand (QC): 88 Chair/Lts-qu-Vplqd Xfer(QC): 88 Gait Does the Patient Walk?: No and Walking Goal IS indicated Balance Sitting Static: Fair Sitting Dynamic: Fair Assessment/Needs 79 y.o. male, will benefit from skilled PT to address functional strength and mobility to improve current LOF. Patient is unable to follow simple direction and is not safe for OOB activity on this date. RN notified. Rehab Potential: Guarded PT Culture Media Laboratory Assistant Goals Assisted Goals PT Assisted Goals Time Frame: Oct 20, 2020 Roll Left & Right (QC): 4 Sit to Lying (QC): 4 Lying-Sitting on Side/Bed(QC): 4 Sit to Stand (QC): 4 Chair/Nvu-kq-Shgvl Xfer(QC): 4 Toilet Transfer (QC): 4 Does the Patient Walk: Yes Walk 10 feet (QC): 4 Walk 50ft with 2 Turns (QC): 4 PT Plan Problem List Problem List: Activity Tolerance, Functional Strength, Safety, Balance, Gait, Transfer, Bed Mobility Treatment/Plan Treatment Plan: Continue Plan of Care Treatment Plan: Bed Mobility, Education, Functional Activity [place], Functional Strength, Gait, Safety, Therapeutic Exercise, Transfers Treatment Duration: Oct 20, 2020 Frequency: 5 times per week Estimated Hrs Per Day: .25 hour per day Time/GCodes Time In: 1046 Time Out: 1100 Total Billed Treatment Time: 14 [facility] ARMINDA MELGAR PT Oct 01, 2020 12:17
[2020-10-01] MEDS ORDERED: ONDANSETRON 4 MG/2 ML (SDV) Z0FRAN IV PRN (13:15)
[2020-10-01] MEDS ORDERED: ACETAMINOPHEN 500 MG TAB (TYLENOL) PO PRN (13:15)
[2020-10-01] MEDS ORDERED: diphenhydrAMINE 50 MG/ML INJ (BENADRYL) IV PRN (13:30)
[2020-10-01] MEDS ORDERED: EPINEPHrine INJECTION 1 MG/ML AMP IM PRN (13:30)
[2020-10-01] MEDS ORDERED: CASIRIVIMAB/IMDEVIMAB 1,200 MG in NS (IVPB) 250 ML IV NR (14:30)
[2020-10-01 16:00] VITALS: BP_SYST 108; BP_SYST 163; BP_DIAS 59; BP_DIAS 96
--- NOTE | 2020-10-01 19:11 | History & Physical ---
HPI History of Present Illness: Per , she was visiting him on Thursday and noted that he was weak, and the aide also stated he was weak and almost fell getting into his room and they thought perhaps he had UTI and suggested urgent care visit and by the time they had finished discussing that, he couldn't even stand, so his took him to the ER. He usually does walk on his own, and dresses himself. His states he has not known who his family is for a long time, isn't able to answer most questions in general. Source: family Date seen by provider: Oct 01, 2020 Time Seen by Provider: 15:30 Attending Physician Whitney Dc MD PCP Anjel Suarez MD Consult Date of Admission Sep 30, 2020 at 15:29 Home Medications Home Medications Reviewed patient Home Medication Reconciliation performed by pharmacy medication reconciliations behavioral technician and/or nursing. Patients Allergies have been reviewed. Allergies Coded Allergies: No Known Drug Allergies (Unverified , 01/26/19) GNP-Ssgodf-Qkuade Hx Patient Social History 2nd Hand Smoke Exposure: No Recent Hopitalizations: No Alcohol Use?: No Have you traveled recently?: Unable to obtain Past Medical History PMHx: Dementia Review of Systems ([facility]) Constitutional: other (unable to obtain due to dementia) Reviewed Test Results Reviewed Test Results Lab Laboratory Tests Test 09/30/20 15:06 09/30/20 15:20 09/30/20 15:53 09/30/20 17:35 Range/Units White Blood Count 8.0 4.3-11.0 10^3/uL Red Blood Count 3.94 L 4.35-5.85 10^6/uL Hemoglobin 12.4 L 13.3-17.7 G/DL Hematocrit 38 L 40-54 % Mean Corpuscular Volume 97 80-99 FL Mean Corpuscular Hemoglobin 31 25-34 PG Mean Corpuscular Hemoglobin Concent 33 32-36 G/DL Red Cell Distribution Width 13.9 10.0-14.5 % Platelet Count 218 130-400 10^3/uL Mean Platelet Volume 11.2 H 7.4-10.4 FL Immature Granulocyte % (Auto) 0 % Neutrophils (%) (Auto) 66 42-75 % Lymphocytes (%) (Auto) 16 12-44 % Monocytes (%) (Auto) 17 H 0-12 % Eosinophils (%) (Auto) 1 0-10 % Basophils (%) (Auto) 1 0-10 % Neutrophils # (Auto) 5.2 1.8-7.8 X 10^3 Lymphocytes # (Auto) 1.2 1.0-4.0 X 10^3 Monocytes # (Auto) 1.4 H 0.0-1.0 X 10^3 Eosinophils # (Auto) 0.1 0.0-0.3 10^3/uL Basophils # (Auto) 0.0 0.0-0.1 10^3/uL Immature Granulocyte # (Auto) 0.0 0.0-0.1 10^3/uL Sodium Level 138 135-145 MMOL/L Potassium Level 4.5 3.6-5.0 MMOL/L Chloride Level 104 98-107 MMOL/L Carbon Dioxide Level 23 21-32 MMOL/L Anion Gap 11 5-14 MMOL/L Blood Urea Nitrogen 32 H 7-18 MG/DL Creatinine 2.03 H 0.60-1.30 MG/DL Estimat Glomerular Filtration Rate 32 BUN/Creatinine Ratio 16 Glucose Level 139 H 70-105 MG/DL Calcium Level 8.5 8.5-10.1 MG/DL Corrected Calcium 8.9 8.5-10.1 MG/DL Total Bilirubin 0.2 0.1-1.0 MG/DL Aspartate Amino Transf (AST/SGOT) 31 5-34 U/L Alanine Aminotransferase (ALT/SGPT) 19 0-55 U/L Alkaline Phosphatase 86 40-136 U/L Troponin I < 0.30 <0.30 NG/ML Total Protein 5.9 L 6.4-8.2 GM/DL Albumin 3.5 3.2-4.5 GM/DL Lipase 28 8-78 U/L Urine Color YELLOW Urine Clarity CLEAR Urine pH 7.5 5-9 Urine Specific [place] 1.020 1.016-1.022 Urine Protein NEGATIVE NEGATIVE Urine Glucose (UA) NEGATIVE NEGATIVE Urine Ketones NEGATIVE NEGATIVE Urine Nitrite NEGATIVE NEGATIVE Urine Bilirubin NEGATIVE NEGATIVE Urine Urobilinogen 0.2 < = 1.0 MG/DL Urine Leukocyte Esterase NEGATIVE NEGATIVE Urine RBC (Auto) 2+ H NEGATIVE Urine RBC >100 H /HPF Urine WBC NONE /HPF Urine Crystals NONE /LPF Urine Bacteria FEW H /HPF Urine Casts PRESENT /LPF Urine Hyaline Casts 2-5 H /LPF Urine Mucus MODERATE H /LPF Urine Culture Indicated NO Influenza Type A (RT-PCR) Not Detected Not Detected Not Detecte Influenza Type B (RT-PCR) Not Detected Not Detected Not Detecte SARS-CoV-2 RNA (RT-PCR) Detected H Detected H Not Detecte Test 10/01/20 05:43 Range/Units White Blood Count 7.2 4.3-11.0 10^3/uL Red Blood Count 3.86 L 4.30-5.52 10^6/uL Hemoglobin 12.0 L 13.3-17.7 g/dL Hematocrit 39 L 40-54 % Mean Corpuscular Volume 100 H 80-99 fL Mean Corpuscular Hemoglobin 31 25-34 pg Mean Corpuscular Hemoglobin Concent 31 L 32-36 g/dL Red Cell Distribution Width 14.0 10.0-14.5 % Platelet Count 185 130-400 10^3/uL Mean Platelet Volume 11.5 9.0-12.2 fL Immature Granulocyte % (Auto) 1 % Neutrophils (%) (Auto) 63 42-75 % Lymphocytes (%) (Auto) 18 12-44 % Monocytes (%) (Auto) 17 H 0-12 % Eosinophils (%) (Auto) 1 0-10 % Basophils (%) (Auto) 0 0-10 % Neutrophils # (Auto) 4.5 1.8-7.8 10^3/uL Lymphocytes # (Auto) 1.3 1.0-4.0 10^3/uL Monocytes # (Auto) 1.2 H 0.0-1.0 10^3/uL Eosinophils # (Auto) 0.1 0.0-0.3 10^3/uL Basophils # (Auto) 0.0 0.0-0.1 10^3/uL Immature Granulocyte # (Auto) 0.0 0.0-0.1 10^3/uL Sodium Level 139 135-145 MMOL/L Potassium Level 4.0 3.6-5.0 MMOL/L Chloride Level 108 H 98-107 MMOL/L Carbon Dioxide Level 22 21-32 MMOL/L Anion Gap 9 5-14 MMOL/L Blood Urea Nitrogen 22 H 7-18 MG/DL Creatinine 1.50 H 0.60-1.30 MG/DL Estimat Glomerular Filtration Rate 45 BUN/Creatinine Ratio 15 Glucose Level 102 70-105 MG/DL Calcium Level 8.2 L 8.5-10.1 MG/DL Radiology CXR with no acute process Physical Exam-([facility]) Physical Exam Vital Signs VS - Last 72 Hours, by Label 09/30/20 09/30/20 09/30/20 09/30/20 15:00 16:29 18:35 18:40 Temp 36.5 36.2 37.2 Pulse 102 78 92 Resp 20 16 18 B/P (MAP) 114/64 (81) 122/68 138/96 (110) Pulse Ox 95 99 94 O2 Delivery Room Air Room Air Room Air Room Air 09/30/20 09/30/20 09/30/20 10/01/20 20:00 20:55 23:34 03:51 Temp 37.7 36.8 37.4 Pulse 90 84 90 Resp 18 18 20 B/P (MAP) 155/84 (107) 122/74 (90) 167/96 (119) Pulse Ox 93 90 92 O2 Delivery Room Air Room Air Room Air Room Air 10/01/20 10/01/20 10/01/20 10/01/20 07:38 08:00 11:48 16:00 Temp 37.6 37.2 36.3 Pulse 94 80 94 Resp 18 18 20 B/P (MAP) 156/96 (116) 135/77 (96) 163/96 (118) Pulse Ox 93 92 95 O2 Delivery Room Air Room Air Room Air Room Air 10/01/20 10/01/20 19:20 20:18 Temp 38.8 38.8 Pulse 94 Resp 22 B/P (MAP) 181/100 (127) Pulse Ox 93 O2 Delivery Room Air Capillary Refill : Less Than 3 Seconds General Appearance: other (alert, pulling at soto catheter) Respiratory: lungs clear Cardiovascular: regular rate, rhythm, no murmur Gastrointestinal: normal bowel sounds, non tender, soft Extremities: no pedal edema Neurologic/Psychiatric: alert, other (oriented to self only, does not answer any other questions or follow any directions, moving all extremities) Skin: warm/dry Assessment/Plan Assessment/Plan Admission Status: Observation (1) Generalized weakness Status: Acute Assessment & Plan: Uncertain etiology, possibly delirium superimposed on dementia leading to difficulty with coordination and following instructions. COVID positive, unclear how significant this is, no respiratory issues. No evidence of UTI although he does have significant hematuria but urine was from cath and he is on eliquis. Given 's report of a possible fall and his Eliquis, will check CT head. (2) COVID-19 Status: Acute Assessment & Plan: Unclear how symptomatic- per had cough starting Thursday. No hypoxia, will give monoclonal antibody treatment to decrease risk of progression to severe disease. (3) Dementia Status: Chronic Assessment & Plan: Severe, oriented only to name, near baseline per discussion with . (4) CKD (chronic kidney disease) Status: Chronic Qualifiers: (5) CAD (coronary artery disease) Status: Chronic (6) Atrial fibrillation Status: Chronic (7) DVT prophylaxis Status: Chronic Assessment & Plan: On eliquis. WHITNEY DC MD Oct 01, 2020 19:11
[2020-10-01 19:20] VITALS: BP 181/100
--- NOTE | 2020-10-01 20:02 | Diagnostic Imaging Report ---
PROCEDURE: CT head without contrast. TECHNIQUE: Multiple contiguous axial images were obtained through the brain without the use of intravenous contrast. Auto Exposure Controls were utilized during the CT exam to meet ALARA standards for radiation dose reduction. INDICATION: Altered mental status, Covid positive. COMPARISON made with an exam dated 01/26/2019. The ventricles are not dilated. There are no hemorrhages. There are no extra-axial fluid collections. There is a small calcified lesion adjacent to the occipital horn of the left lateral ventricle. It is not appreciably changed from the prior exam. IMPRESSION: Stable brain with a 1 cm partially calcified lesion in the left posterior parietal lobe adjacent to the occipital horn of the left lateral ventricle. No acute abnormality is seen. Dictated by: Dictated on workstation # [id number]
[2020-10-01] MEDS: ALPRAZolam 0.25 MG (XANAX) TAB PO PRN (20:18)
[2020-10-01 23:54] VITALS: BP 97/54
[2020-10-02] VITALS (7 sets, daily range): BP systolic 136–193; BP diastolic 63–93
[2020-10-02] MEDS: HALOPERIDOL 5 MG/ML (HALDOL) VIAL IM PRN ×2 (01:27→11:37)
[2020-10-02] MEDS: VENlafaxine XR 75 MG (EFFEXOR XR) CAP PO SCH (06:00)
[2020-10-02] MEDS: ALPRAZolam 0.25 MG (XANAX) TAB PO PRN ×2 (06:00→15:06)
[2020-10-02 06:40] LABS: HEMATOCRIT 38 % (40-54); HEMOGLOBIN 12.2 g/dL (13.3-17.7); MEAN CORPUSCULAR HEMOGLOBIN 32 pg (25-34); MEAN CORPUSCULAR HGB CONC 33 g/dL (32-36); MEAN CORPUSCULAR VOLUME 98 fL (80-99); MEAN PLATELET VOLUME 11.3 fL (9.0-12.2); PLATELET COUNT 185 10^3/uL (130-400); WHITE BLOOD COUNT 8.6 10^3/uL (4.3-11.0)
[2020-10-02 06:50] LABS: POTASSIUM 3.8 MMOL/L (3.6-5.0)
[2020-10-02 06:51] LABS: CALCIUM 8.1 MG/DL (8.5-10.1)
[2020-10-02 06:56] LABS: CREATININE SERUM 1.29 MG/DL (0.60-1.30)
[2020-10-02] MEDS: D5 1/2 NS 1000 ML IV SOLUTION 1,000 ML IV SCH ×3 (07:03→23:08)
[2020-10-02] MEDS: ASPIRIN E.C. 81 MG (ECOTRIN) TAB PO SCH (08:40)
[2020-10-02] MEDS: SENNA W/DOCUSATE (SENOKOT S) TABLET PO SCH ×2 (08:40→20:54)
[2020-10-02] MEDS: APIXABAN 5 MG (ELIQUIS) TABLET PO SCH ×2 (08:40→20:59)
[2020-10-02] MEDS: PANTOPRAZOLE 20 MG TABLET (PROTONIX) PO SCH (08:40)
[2020-10-02] MEDS: lisINopril 10 MG (PRINIVIL) TABLET PO SCH (08:40)
[2020-10-02] MEDS: LORATADINE (CLARITIN) 10 MG TAB PO SCH (08:41)
[2020-10-02] MEDS: LORazepam INJ 2 MG/ML (ATIVAN) VIAL IVP PRN ×2 (08:55→20:59)
[2020-10-02] MEDS: OLANZapine 5 MG (ZyPREXA) TAB PO SCH (13:23)
--- NOTE | 2020-10-02 14:38 | Physical Therapy Daily Note ---
PT Daily Note-Current Subjective Patient will not open his eyes but will respond to PT. Transfers SCALE: Activities may be completed with or without assistive devices. 2-Uidxuraqpb-msihfjv completes the activity by him/herself with no assistance from a helper. 5-Set-up or Clean-up Assistance-helper sets up or cleans up; patient completes activity. [place] assists only prior to or following the activity. 4-Supervision or Touching Assistance-helper provides verbal cues and/or touching/steadying and/or contact guard assistance as patient completes activity. Assistance may be provided throughout the activity or intermittently. 3-Partial/Moderate Assistance-helper does LESS THAN HALF the effort. [place] lifts, holds or supports trunk or limbs, but provides less than half the effort. 2-Substantial/Maximal Assistance-helper does MORE THAN HALF the effort. [place] lifts or holds trunk or limbs and provides more than half the effort. 1-Irsimijxz-mrmgwd does ALL the effort. Patient does none of the effort to complete the activity. Or, the assistance of 2 or more helpers is required for the patient to complete the activity. If activity was not attempted, code reason: 7-Patient Refused. 9-Not Applicable-not attempted and the patient did not perform the activity before the current illness, exacerbation or injury. 10-Not Attempted due to Environmental Limitations-(lack of equipment, weather restraints, etc.). 88-Not Attempted due to Medical Conditions or Safety Concerns. Roll Left & Right (QC): 1 (x 2) bedding changed and patient repositioned up in bed Treatments Patient given medication on this date to decrease agitation. Patient did respond to PT with feeding. Patient repositioned up in bed with HOB elevated and pillow placed behind head to position head in chin tuck position to decrease aspiration risk. Patient did consume juice and broth through a straw without incident. RN notified. Bed alarm activated. Assessment Current Status: Poor Progress PT Well Service Floor Worker Goals Well Service Floor Worker Goals PT Senior Care Goals Time Frame: Oct 20, 2020 Roll Left & Right (QC): 4 Sit to Lying (QC): 4 Lying-Sitting on Side/Bed(QC): 4 Sit to Stand (QC): 4 Chair/Xhf-mo-Dexem Xfer(QC): 4 Toilet Transfer (QC): 4 Does the Patient Walk: Yes Walk 10 feet (QC): 4 Walk 50ft with 2 Turns (QC): 4 PT Plan Treatment/Plan Treatment Plan: Continue Plan of Care Treatment Plan: Bed Mobility, Education, Functional Activity [place], Functional Strength, Gait, Safety, Therapeutic Exercise, Transfers Treatment Duration: Oct 20, 2020 Frequency: 5 times per week Estimated Hrs Per Day: .25 hour per day Time/GCodes Time In: 1344 Time Out: 1355 Total Billed Treatment Time: 11 Total Billed Treatment 1 visit FA 11 min ARMINDA MELGAR PT Oct 02, 2020 14:38
--- NOTE | 2020-10-02 17:13 | Progress Note ---
Subjective Subjective/Events-last exam Febrile to 38.8 overnight, blood pressure elevated. Answers a few yes or no questions, seems a little more focused. Objective Exam Last Set of Vital Signs Vital Signs Date Time Temp Pulse Resp B/P (MAP) Pulse Ox O2 Delivery O2 Flow Rate FiO2 10/02/20 15:37 37.6 80 22 140/81 (100) 92 Room Air Capillary Refill : Less Than 3 Seconds I&O Intake and Output 10/02/20 00:00 Intake Total 658 ml Output Total 4775 ml Balance -4117 ml Intake Oral 658 ml Output Urine Total 4775 ml General: Alert, No Acute Distress Lungs: Clear to Auscultation Heart: Regular Rate Abdomen: Normal Bowel Sounds, Soft Extremities: No Edema Neuro: Other (oriented to self only) Results/Procedures Lab Laboratory Tests 10/02/20 06:22: White Blood Count 8.6, Red Blood Count 3.84L, Hemoglobin 12.2L, Hematocrit 38L, Mean Corpuscular Volume 98, Mean Corpuscular Hemoglobin 32, Mean Corpuscular Hemoglobin Concent 33, Red Cell Distribution Width 13.6, Platelet Count 185, Mean Platelet Volume 11.3, Sodium Level 135, Potassium Level 3.8, Chloride Level 105, Carbon Dioxide Level 21, Anion Gap 9, Blood Urea Nitrogen 15, Creatinine 1.29, Estimat Glomerular Filtration Rate 54, BUN/Creatinine Ratio 12, Glucose Level 118H, Calcium Level 8.1L Radiology CXR with no acute process Assessment/Plan Assessment/Plan (1) Generalized weakness Status: Acute Assessment & Plan: Uncertain etiology, possibly delirium superimposed on dementia leading to difficulty with coordination and following instructions. COVID positive, unclear how significant this is, no respiratory issues. No evidence of UTI although he does have significant hematuria but urine was from cath and he is on eliquis. Given 's report of a possible fall and his Eliquis, will check CT head. 10/02 CT head with no acute findings, continue PT (2) COVID-19 Status: Acute Assessment & Plan: Unclear how symptomatic- per had cough starting Thursday. No hypoxia, given monoclonal antibody treatment to decrease risk of progression to severe disease. (3) Dementia Status: Chronic Assessment & Plan: Severe, oriented only to name, near baseline per discussion with . (4) CKD (chronic kidney disease) Status: Chronic Qualifiers: (5) CAD (coronary artery disease) Status: Chronic (6) Atrial fibrillation Status: Chronic (7) DVT prophylaxis Status: Chronic Assessment & Plan: On chapin. WHITNEY SILVA MD Oct 02, 2020 17:13
[2020-10-02] MEDS: MELATONIN 3 MG TABLET PO PRN (21:01)
[2020-10-02] MEDS ORDERED: ACETAMINOPHEN 325 MG TABLET PO PRN (22:00)
[2020-10-03 04:59] VITALS: BP 152/88
[2020-10-03] MEDS: VENlafaxine XR 75 MG (EFFEXOR XR) CAP PO SCH (05:48)
[2020-10-03 06:07] LABS: HEMATOCRIT 39 % (40-54); HEMOGLOBIN 12.4 g/dL (13.3-17.7); MEAN CORPUSCULAR HEMOGLOBIN 31 pg (25-34); MEAN CORPUSCULAR HGB CONC 32 g/dL (32-36); MEAN CORPUSCULAR VOLUME 99 fL (80-99); MEAN PLATELET VOLUME 11.9 fL (9.0-12.2); PLATELET COUNT 202 10^3/uL (130-400); WHITE BLOOD COUNT 7.5 10^3/uL (4.3-11.0)
[2020-10-03 06:19] LABS: POTASSIUM 3.9 MMOL/L (3.6-5.0)
[2020-10-03 06:20] LABS: CALCIUM 8.2 MG/DL (8.5-10.1)
[2020-10-03 06:24] LABS: CREATININE SERUM 1.27 MG/DL (0.60-1.30)
[2020-10-03 07:45] VITALS: BP 143/91
[2020-10-03] MEDS: D5 1/2 NS 1000 ML IV SOLUTION 1,000 ML IV SCH (08:56)
[2020-10-03] MEDS: SENNA W/DOCUSATE (SENOKOT S) TABLET PO SCH ×2 (09:04→21:32)
[2020-10-03] MEDS: APIXABAN 5 MG (ELIQUIS) TABLET PO SCH ×2 (09:04→21:32)
[2020-10-03] MEDS: lisINopril 10 MG (PRINIVIL) TABLET PO SCH (09:04)
[2020-10-03] MEDS: PANTOPRAZOLE 20 MG TABLET (PROTONIX) PO SCH (09:04)
[2020-10-03] MEDS: ASPIRIN E.C. 81 MG (ECOTRIN) TAB PO SCH (09:04)
[2020-10-03] MEDS: LORATADINE (CLARITIN) 10 MG TAB PO SCH (09:04)
[2020-10-03 12:00] VITALS: BP 178/106
[2020-10-03 12:16] VITALS: BP 142/86
[2020-10-03] MEDS: OLANZapine 5 MG (ZyPREXA) TAB PO SCH (13:05)
[2020-10-03] MEDS: HYDROcodone/APAP 5 MG/325 MG (LORTAB) TAB PO PRN (13:05)
--- NOTE | 2020-10-03 15:11 | Physical Therapy Daily Note ---
PT Daily Note-Current Subjective Patient in COVID precautions; asleep in bed upon PT arrival. Patient does not respond to verbal or tactile stimuli. Mental Status Attachments: [place] Catheter, IV Transfers SCALE: Activities may be completed with or without assistive devices. 5-Xbaxkgohzn-krkahjl completes the activity by him/herself with no assistance from a helper. 5-Set-up or Clean-up Assistance-helper sets up or cleans up; patient completes activity. [place] assists only prior to or following the activity. 4-Supervision or Touching Assistance-helper provides verbal cues and/or touching/steadying and/or contact guard assistance as patient completes ac tivity. Assistance may be provided throughout the activity or intermittently. 3-Partial/Moderate Assistance-helper does LESS THAN HALF the effort. [place] lifts, holds or supports trunk or limbs, but provides less than half the effort. 2-Substantial/Maximal Assistance-helper does MORE THAN HALF the effort. [place] lifts or holds trunk or limbs and provides more than half the effort. 3-Niulsgwzb-ndittr does ALL the effort. Patient does none of the effort to complete the activity. Or, the assistance of 2 or more helpers is required for the patient to complete the activity. If activity was not attempted, code reason: 7-Patient Refused. 9-Not Applicable-not attempted and the patient did not perform the activity before the current illness, exacerbation or injury. 10-Not Attempted due to Environmental Limitations-(lack of equipment, weather restraints, etc.). 88-Not Attempted due to Medical Conditions or Safety Concerns. Roll Left & Right (QC): 1 Sit to Lying (QC): 1 Lying to Sitting/Side of Bed(Q: 1 Gait Training Does the Patient Walk?: No and Walking Goal IS indicated Exercises PROM to BLEs into all planes available x 20 Assessment Current Status: Poor Progress Patient currently not responsive to verbal or tactile stimuli. Requires total assistance for bed mobility and PROM to LEs for ROM to decrease contractures and improve blood flow. Will continue to assess and progress patients activity when/if he is able to tolerate. Patient in bed post treatment with all needs met, nursing notified, call light in reach, bed alarm activated. PT Nursing Home Goals Nursing Home Goals PT Nursing Home Goals Time Frame: Oct 20, 2020 Roll Left & Right (QC): 4 Sit to Lying (QC): 4 Lying-Sitting on Side/Bed(QC): 4 Sit to Stand (QC): 4 Chair/Iht-qi-Shrmw Xfer(QC): 4 Toilet Transfer (QC): 4 Does the Patient Walk: Yes Walk 10 feet (QC): 4 Walk 50ft with 2 Turns (QC): 4 PT Plan Treatment/Plan Treatment Plan: Continue Plan of Care Treatment Plan: Bed Mobility, Education, Functional Activity [place], Functional Strength, Gait, Safety, Therapeutic Exercise, Transfers Treatment Duration: Oct 20, 2020 Frequency: 5 times per week Estimated Hrs Per Day: .25 hour per day Safety Risks/Education Unable to provide education at this time. Time/GCodes Time In: 1430 Time Out: 1455 Total Billed Treatment Time: 25 Total Billed Treatment Visit, Ex, SANIYA MIRANDA PT Oct 03, 2020 15:11
[2020-10-03 16:32] VITALS: BP 138/82
--- NOTE | 2020-10-03 16:32 | Progress Note ---
Subjective Subjective/Events-last exam No significant change, required some medications for agitation yesterday as he continued to try to pull soto and get out of bed. This morning he had slumped himself sideways in bed with his leg over the railing and was rubbing his foot with his gown, he did ultimately shift his head back to the bed after multiple requests and slight assistance, and said "yes" when asked if he could move his head back into bed, but did not answer any other questions. Objective Exam Last Set of Vital Signs Vital Signs Date Time Temp Pulse Resp B/P (MAP) Pulse Ox O2 Delivery O2 Flow Rate FiO2 10/03/20 12:16 142/86 (104) 10/03/20 12:00 35.8 84 22 90 Room Air Capillary Refill : Less Than 3 Seconds I&O Intake and Output 10/03/20 00:00 Intake Total 680 ml Output Total 4750 ml Balance -4070 ml Intake Oral 680 ml Output Urine Total 4750 ml # Bowel Movements 2 General: Alert, No Acute Distress Lungs: Clear to Auscultation, Normal Air Movement Heart: Regular Rate Abdomen: Normal Bowel Sounds, Soft Psych/Mental Status: Other (does not answer questions, able to say "yes" occasionally, moving all extremities) Results/Procedures Lab Laboratory Tests 10/03/20 05:12: White Blood Count 7.5, Red Blood Count 3.96L, Hemoglobin 12.4L, Hematocrit 39L, Mean Corpuscular Volume 99, Mean Corpuscular Hemoglobin 31, Mean Corpuscular Hemoglobin Concent 32, Red Cell Distribution Width 13.4, Platelet Count 202, Mean Platelet Volume 11.9, Sodium Level 138, Potassium Level 3.9, Chloride Level 106, Carbon Dioxide Level 24, Anion Gap 8, Blood Urea Nitrogen 11, Creatinine 1.27, Estimat Glomerular Filtration Rate 55, BUN/Creatinine Ratio 9, Glucose Level 111H, Calcium Level 8.2L Radiology CXR with no acute process Assessment/Plan Assessment/Plan (1) Generalized weakness Status: Acute Assessment & Plan: Uncertain etiology, possibly delirium superimposed on dementia leading to difficulty with coordination and following instructions. COVID positive, unclear how significant this is, no respiratory issues. No evidence of UTI although he does have significant hematuria but urine was from cath and he is on eliquis. Given 's report of a possible fall and his Eliquis, will check CT head. 10/02 CT head with no acute findings, continue PT 10/03- no significant change, uncertain if related to COVID versus worsening underlying dementia, discussed with and anticipate return to memory care unit tomorrow (2) COVID-19 Status: Acute Assessment & Plan: Unclear how symptomatic- per had cough starting Thursday. No hypoxia, given monoclonal antibody treatment to decrease risk of pr ogression to severe disease. (3) Dementia Status: Chronic Assessment & Plan: Severe, oriented only to name, near baseline per discussion with . (4) CKD (chronic kidney disease) Status: Chronic Qualifiers: (5) CAD (coronary artery disease) Status: Chronic (6) Atrial fibrillation Status: Chronic (7) DVT prophylaxis Status: Chronic Assessment & Plan: On eliquis. (8) Goals of care, counseling/discussion Status: Acute Assessment & Plan: Spoke with today and she and daughters did change his code status to DNR yesterday, discussed that he would qualify for hospice services if they desired, they have not discussed this previously, and she is not sure, would like to consider and talk with family. We discussed that he could also be discharged and add hospice services later if desired. WHITNEY SILVA MD Oct 03, 2020 16:32
[2020-10-03] MEDS: LORazepam INJ 2 MG/ML (ATIVAN) VIAL IVP PRN (18:10)
[2020-10-03 19:14] VITALS: BP 168/90
[2020-10-04 00:28] VITALS: BP 141/82
[2020-10-04] MEDS: LORazepam INJ 2 MG/ML (ATIVAN) VIAL IVP PRN ×3 (01:42→09:25)
[2020-10-04 04:08] VITALS: BP 151/97
[2020-10-04] MEDS: VENlafaxine XR 75 MG (EFFEXOR XR) CAP PO SCH (05:54)
[2020-10-04 06:07] LABS: HEMATOCRIT 43 % (40-54); HEMOGLOBIN 13.6 g/dL (13.3-17.7); MEAN CORPUSCULAR HEMOGLOBIN 31 pg (25-34); MEAN CORPUSCULAR HGB CONC 32 g/dL (32-36); MEAN CORPUSCULAR VOLUME 98 fL (80-99); MEAN PLATELET VOLUME 11.2 fL (9.0-12.2); PLATELET COUNT 246 10^3/uL (130-400)
[2020-10-04 06:22] LABS: POTASSIUM 4.4 MMOL/L (3.6-5.0)
[2020-10-04 06:23] LABS: CALCIUM 9.1 MG/DL (8.5-10.1)
[2020-10-04 06:27] LABS: CREATININE SERUM 1.23 MG/DL (0.60-1.30)
[2020-10-04 07:49] VITALS: BP 174/87
[2020-10-04] MEDS ORDERED: lisINopril 20 MG (PRINIVIL) TABLET PO SCH (09:00)
[2020-10-04] MEDS: APIXABAN 5 MG (ELIQUIS) TABLET PO SCH (09:12)
[2020-10-04] MEDS: ASPIRIN E.C. 81 MG (ECOTRIN) TAB PO SCH (09:12)
[2020-10-04] MEDS: SENNA W/DOCUSATE (SENOKOT S) TABLET PO SCH (09:24)
[2020-10-04] MEDS: PANTOPRAZOLE 20 MG TABLET (PROTONIX) PO SCH (09:24)
[2020-10-04] MEDS: LORATADINE (CLARITIN) 10 MG TAB PO SCH (09:25)
[2020-10-04] MEDS ORDERED: CALC200T40 PO (12:07)
[2020-10-04] MEDS ORDERED: LOPE2CAP PO (12:07)
[2020-10-04 12:09] VITALS: BP 140/86
[2020-10-04] MEDS: OLANZapine 5 MG (ZyPREXA) TAB PO SCH (12:43)
[2020-10-04] MEDS: HYDROcodone/APAP 5 MG/325 MG (LORTAB) TAB PO PRN (12:43)
--- NOTE | 2020-10-04 12:57 | Discharge Summary ---
Discharge Summary Hospital Course Problems/Diagnosis: (1) Generalized weakness Status: Acute Assessment & Plan: Uncertain etiology, possibly delirium superimposed on dementia leading to difficulty with coordination and following instructions. COVID positive, unclear how significant this is, no respiratory issues. No evidence of UTI although he does have significant hematuria but urine was from cath and he is on eliquis. Given 's report of a possible fall and his Eliquis, will check CT head. 10/02 CT head with no acute findings, continue PT 10/03- no significant change, uncertain if related to COVID versus worsening underlying dementia, discussed with and anticipate return to memory care unit tomorrow 10/04 more alert, but still not able to follow instructions, family decided to proceed with hospice on discharge. (2) COVID-19 Status: Acute Assessment & Plan: Unclear how symptomatic- per had cough starting Thursday. No hypoxia, given monoclonal antibody treatment to decrease risk of progression to severe disease. (3) Dementia Status: Chronic Assessment & Plan: Severe, oriented only to name, near baseline per discussion with . (4) CKD (chronic kidney disease) Status: Chronic Qualifiers: (5) CAD (coronary artery disease) Status: Chronic (6) Atrial fibrillation Status: Chronic (7) Goals of care, counseling/discussion Status: Acute Assessment & Plan: Spoke with today and she and daughters did change his code status to DNR yesterday, discussed that he would qualify for hospice services if they desired, they have not discussed this previously, and she is not sure, would like to consider and talk with family. We discussed that he could also be discharged and add hospice services later if desired. 10/04 family decided to proceed with discharge with hospice services. Hospital Course Date of Admission: Sep 30, 2020 at 15:29 Admission Diagnosis : Family Physician/Provider: Kevin Suarez MD Date of Discharge: 10/04/20 Discharge Diagnosis: See problem list Hospital Course: See problem list Labs and Pending Lab Test: Laboratory Tests 10/04/20 05:50: White Blood Count 9.0, Red Blood Count 4.35, Hemoglobin 13.6, Hematocrit 43, Mean Corpuscular Volume 98, Mean Corpuscular Hemoglobin 31, Mean Corpuscular Hemoglobin Concent 32, Red Cell Distribution Width 13.1, Platelet Count 246, Mean Platelet Volume 11.2, Sodium Level 139, Potassium Level 4.4, Chloride Level 106, Carbon Dioxide Level 20L, Anion Gap 13, Blood Urea Nitrogen 15, Creatinine 1.23, Estimat Glomerular Filtration Rate 57, BUN/Creatinine Ratio 12, Glucose Level 82, Calcium Level 9.1 Home Meds Active Loperamide (Loperamide HCl) 2 Mg Capsule 2 Mg PO NEEDED PRN Calcium Antacid (Calcium Carbonate) 200 Mg Tab.chew 500 Mg PO TID PRN Reported Tylenol Extra Strength (Acetaminophen) 500 Mg Tablet 1,000 Mg PO Q8H PRN Venlafaxine HCl ER (Venlafaxine HCl) 150 Mg Cap.er.24h 150 Mg PO DAILY Olanzapine 15 Mg Tablet 15 Mg 1200 Nitroglycerin 0.4 Mg Tab.subl 0.4 Mg SL UD PRN Omeprazole 20 Mg Capsule.dr 20 Mg PO DAILY [place] 3 1,000 mg Softgel ([place]-3 Fatty Acids/Fish Oil) 1 Each Capsule 1 Each PO BID Claritin (Loratadine) 10 Mg Tablet 10 Mg PO DAILY Centrum Silver Men Tablet (Multivit-Min/FA/Lycopen/Lutein) 1 Each Tablet 1 Each PO DAILY Aspirin EC (Aspirin) 81 Mg Tablet.dr 81 Mg PO DAILY Carvedilol 6.25 Mg Tablet 6.25 Mg PO BID CHECL BP PRIOR TO ADMIN- NOTIFY NURSE FOR BP <120/60 Atorvastatin Calcium 80 Mg Tablet 80 Mg PO 1700 Perindopril Erbumine 2 Mg Tablet 2 Mg PO DAILY Eliquis (Apixaban) 5 Mg Tablet 5 Mg PO BID Assessment/Pt DC Instructions Hospice to be initiated at memory care. Discharge Diet: No Restrictions Activity as Tolerated: Yes Discharge Physical Examination Allergies: Coded Allergies: No Known Drug Allergies (Unverified , 01/26/19) General Appearance: No Apparent Distress Respiratory: Rhonci Cardiovascular: Regular Rate, Rhythm Gastrointestinal: Normal Bowel Sounds, Soft Extremity: No Pedal Edema Skin: Warm/Dry Neurologic/Psychiatric: Alert, Other (mumbles in response to questions) Copy Copies To 1: KEVIN SUAREZ MD, BETHANY N MD Oct 04, 2020 12:57
== END 2020-10-04 16:00 ==
LOC: EDUNIT# 14:52 → ER FS 14:54 → 4TH 15:29
PROVIDERS: ADMIT Internal Medicine; ATTEND Family Medicine
DX: U07.1 COVID-19 (principal); R53.1 Weakness; F03.90 Unspecified dementia, unspecified severity, without behavioral disturbance, psychotic disturbance, mood disturbance, and anxiety; I25.10 Atherosclerotic heart disease of native coronary artery without angina pectoris; I48.91 Unspecified atrial fibrillation; I82.409 Acute embolism and thrombosis of unspecified deep veins of unspecified lower extremity; E78.00 Pure hypercholesterolemia, unspecified; I12.9 Hypertensive chronic kidney disease with stage 1 through stage 4 chronic kidney disease, or unspecified chronic kidney disease; N18.9 Chronic kidney disease, unspecified; Z79.82 Long term (current) use of aspirin; Z79.01 Long term (current) use of anticoagulants; Z79.899 Other long term (current) drug therapy
CPT/HCPCS: 36415; 51702; 70450; 71045; 80048; 80053; 81000; 83690; 84484; 85025; 85027; 87636; 93005; 96374; G0378